=== PATIENT | female | born 1995 | race Two or more races ===

== ENCOUNTER 2025-06-27 17:28 | Emergency (ER) | payer SELFPAY ==
[~2025-06-27] VITALS: Ht 162.6 cm; Wt 52.3 kg
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
[2025-06-27 18:48] VITALS: BP 113/71; PULSE 61; RESP 16; TEMP 98.6; O2SAT 100
== END 2025-06-27 18:52 | disposition home or self-care (01) ==
LOC: ER 17:29
DX: Z04.1 Encounter for examination and observation following transport accident (principal); Z88.0 Allergy status to penicillin; V89.2XXA Person injured in unspecified motor-vehicle accident, traffic, initial encounter; Y93.89 Activity, other specified; Y92.89 Other specified places as the place of occurrence of the external cause; Y99.8 Other external cause status
CPT/HCPCS: 99283